=== PATIENT | male | born 1945 | race Caucasian/White ===

== ENCOUNTER 2020-08-07 19:11 | Inpatient (IN) | payer OTHER ==
[~2020-08-07] VITALS: Ht 177.8 cm; Wt 74.8 kg
--- NOTE | 2020-08-07 19:44 | NUR ---
[facility] - Vaishali Kurtz [phone]
[2020-08-07 20:44] LABS: BASOPHILS % (AUTO) 0.6 % (0.0-2.0); EOSINOPHILS % (AUTO) 1.7 % (0.0-6.0); HEMATOCRIT 40 % (39-51); HEMOGLOBIN 13.2 g/dL (13.5-17.5); LYMPHOCYTES # (AUTO) 0.6 /CMM (0.8-4.8); LYMPHOCYTES % (AUTO) 8.6 % (20.0-44.0); MEAN CORPUSCULAR HGB CONC 33 g/dl (31.0-36.0); MEAN CORPUSCULAR VOLUME 91 fL (80-96); MONOCYTES # (AUTO) 0.5 /CMM (0.1-1.30); MONOCYTES % (AUTO) 6.9 % (2.0-12.0); NEUTROPHILS # (AUTO) 5.4 /CMM (1.8-8.9); NEUTROPHILS % (AUTO) 82.2 % (43.0-81.0); PLATELET COUNT (AUTO) 90 /CMM (150-450); RED BLOOD CELL COUNT(AUTO) 4.46 MIL/uL (4.5-6.0); WHITE BLOOD COUNT (AUTO) 6.5 K/uL (4.3-11.0)
[2020-08-07 20:57] LABS: CALCIUM, SERUM 8.3 mg/dL (8.5-10.1); CARBON DIOXIDE 26 mmol/L (21-32); CHLORIDE 110 mmol/L (98-107); CREATININE 1.4 mg/dL (0.6-1.3); GLUCOSE 136 mg/dL (74-106); POTASSIUM 4.1 mmol/L (3.5-5.1); SODIUM SERUM 146 mmol/L (136-145); UREA NITROGEN, BLOOD 35 mg/dL (7-18)
--- NOTE | 2020-08-07 21:18 | NUR ---
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 RA GAVE NITRO 2 SPRAY AND 324MG ASA. pt aox 1 (baseline per ra) RR EVEN AND UNLABORED. NO SOB NOTED. NO NVD AT THIS TIME. PT GOWNED AND PLACED ON MONITOR. PT EVALUATED BY DR. MCINTYRE.
--- NOTE | 2020-08-07 21:25 | NUR ---
COVID SWAB SENT TO LAB
--- NOTE | 2020-08-07 21:42 | NUR ---
RAGINI SCOTT TALKING TO DR. SMILEY FROM [facility] FOR PEER TO PEER REPORT.
[2020-08-07 22:39] LABS: BAND % (MANUAL) 3 % (0.0-5.0); LYMPHOCYTES % (MANUAL) 10 % (16-48); MONOCYTES % (MANUAL) 5 % (0-11.0); NEUTROPHILS % (MANUAL) 82 (42-76)
--- NOTE | 2020-08-07 23:34 | NUR ---
PT CHELI . CALL ANYTIME FOR UPDATES PER PT .
--- NOTE | 2020-08-08 00:28 | NUR ---
DR. OLIVIER PAGED PER ER ORDER.
[2020-08-08] MEDS ORDERED: ASPIRIN EC 81 MG TABLET.DR PO ONE (00:48)
[2020-08-08] MEDS ORDERED: NITROGLYCERIN 0.4 MG/TAB BOTTLE SL PRN (01:00)
[2020-08-08] MEDS ORDERED: ACETAMINOPHEN 325 MG TABLET PO PRN (01:00)
[2020-08-08] MEDS ORDERED: ZOLPIDEM TARTRATE 5 MG TABLET PO PRN (01:00)
[2020-08-08] MEDS ORDERED: Z GUARD REMEDY 2 OZ OINT TP PRN (01:00)
[2020-08-08] MEDS ORDERED: ONDANSETRON HCL/PF 4 MG/2 ML VIAL IVP PRN (01:00)
[2020-08-08] MEDS ORDERED: HYDROCODONE/APAP 5/325MG TABLET PO PRN (01:00)
[2020-08-08] MEDS ORDERED: MAG HYDROX/AL HYDROX/SIMETH 30 ML UDC PO PRN (01:00)
[2020-08-08] MEDS ORDERED: MAGNESIUM HYDROXIDE 30 ML UDC PO PRN (01:00)
[2020-08-08] MEDS ORDERED: MORPHINE SULFATE INJ 2 MG/ML DISP.SYRIN IV PRN (01:00)
[2020-08-08] MEDS ORDERED: ENOXAPARIN SODIUM 60 MG/0.6 ML DISP.SYRIN SQ ONE (01:29)
[2020-08-08] MEDS ORDERED: ASPIRIN 81 MG TAB.CHEW ONE (01:30)
[2020-08-08] MEDS: ENOXAPARIN SODIUM 40 MG/0.4 ML DISP.SYRIN SQ SCH (01:37)
--- NOTE | 2020-08-08 02:31 | NUR ---
pt cleaned and turned and repositioned. pt connected to monitor. pt appears comfortable no acute distress noted.
--- NOTE | 2020-08-08 05:52 | NUR ---
PT ASLEEP, NO ACUTE DISTRESS NOTED, RESP EVEN AND UNLABORED. PT REMAINS ON CARDIAC MONITORING, CONTINUOUS POX. CALL LIGHT WITHIN REACH. WILL CONTINUE TO MONITOR PT CLOSELY.
--- NOTE | 2020-08-08 07:19 | NUR ---
report given to CURTIS John. no acute distress noted.
[2020-08-08] MEDS: PANTOPRAZOLE 40 MG TABLET.DR PO SCH (07:30)
[2020-08-08] MEDS ORDERED: ISOS30TA6 PO (08:31)
[2020-08-08] MEDS ORDERED: ATOR40TA PO (08:31)
[2020-08-08] MEDS ORDERED: DONE10TA44 PO (08:31)
[2020-08-08] MEDS ORDERED: ASPI-1169 PO (08:31)
[2020-08-08] MEDS ORDERED: CARB1TAB21 PO (08:31)
[2020-08-08] MEDS ORDERED: METO25TA20 PO (08:31)
[2020-08-08] MEDS ORDERED: PANTOPRAZOLE 40 MG TABLET.DR PO ONE (09:15)
[2020-08-08] MEDS: ASPIRIN EC 81 MG TABLET.DR PO SCH (09:29)
--- NOTE | 2020-08-08 09:30 | NUR ---
[place]. No complaints at this time For admission - awaiting bed at this time. Assisted w/Breakfast served ate 25%.
--- NOTE | 2020-08-08 10:27 | NUR ---
312-1. JESSICA IS THE NURSE.
--- NOTE | 2020-08-08 10:49 | NUR ---
Pt for admit to room 312. Nurse [employer] w/RN Brianna. NO acute changes, No obvious distress
--- NOTE | 2020-08-08 11:15 | NUR ---
PT. BROUGHT UP TO FLOOR,CONFUSED,RN NOTED BRUISES UPPER AND LOWER EXT.AND REDNESS 0N BUTTOCKS HEELS WELL. REFUSING PHOTOS.HOOKED UP TO TELE.SR RATE OF 82. SIDE RAILS UP.CALL GIBBONS WITHIN REACH.
[2020-08-08 12:00] VITALS: BP 149/78
--- NOTE | 2020-08-08 14:30 | NUR ---
pt. removed hep lock to rt. hand. restart of angio lt. ac #22.sleeve.additionally a removed tele box.
[2020-08-08 16:00] VITALS: BP 128/78
[2020-08-08] MEDS: METOPROLOL TARTRATE 25 MG TABLET PO SCH (16:18)
[2020-08-08] MEDS: CARBIDOPA/LEVODOPA 25/100 MG 1 UDTAB PO SCH (16:18)
--- NOTE | 2020-08-08 16:51 | NUR ---
rn noted bu rn noted bulge on upper rt. chest.confirmed with .it is a port for chemo.
--- NOTE | 2020-08-08 18:03 | NUR ---
taking oral meds crushed.
[2020-08-08] MEDS: DONEPEZIL 5 MG TABLET PO SCH (19:04)
--- NOTE | 2020-08-08 20:27 | NUR ---
RN OPENING NOTES PATIENT REFUSED IN BED, CONFUSED AND UNCOOPERATIVE. STABLE ON RA WITH BREATHING EVEN AND UNLABORED, NO SOB NOTED. NO SIGNS OF ACUTE DISTRESS. NO SIGNS OF PAIN OR DISCOMFORT. REMOVING TELE MONITORS. IV LOCATED ON L AC #22 SL. RUC PORT NOTED AND IN PLACE. SAFETY PRECAUTIONS IN PLACE WITH BED ALARM ON, BED IN LOWEST POSITION, CALL LIGHT WITHIN REACH, BREAKS ON, SIDE RAILS UP.
[2020-08-08] MEDS: ATORVASTATIN 40 MG TABLET PO SCH (21:37)
--- NOTE | 2020-08-08 21:37 | NUR ---
PT REFUSED SCHEDULED ATORVASTATIN, SPIT IT OUT AND BEING UNCOOPERATIVE.
[2020-08-08 22:00] VITALS: BP 164/88
--- NOTE | 2020-08-08 23:40 | NUR ---
UPDATED ON PATIENT PROGRESS.
[2020-08-09] VITALS: BP 151/84
[2020-08-09] MEDS: ENOXAPARIN SODIUM 40 MG/0.4 ML DISP.SYRIN SQ SCH (01:02)
[2020-08-09 04:00] VITALS: BP 141/73
--- NOTE | 2020-08-09 07:30 | NUR ---
ms rn received on bed, awake,alert,oriented x1,not in any form of distress, respirations even and unlabored,no sob noted, lungs are diminished,abdomen soft,positive bowel sounds,denies pain at this time,all needs attended.
[2020-08-09 08:00] VITALS: BP 143/80
[2020-08-09 08:01] VITALS: BP 144/77
--- NOTE | 2020-08-09 08:14 | NUR ---
RN CLOSING NOTES PATIENT IN BED, CONFUSED A/O X 1. STABLE ON RA WITH BREATHING EVEN AND UNLABORED, NO SOB NOTED. NO SIGNS OF ACUTE DISTRESS. NO SIGNS OF PAIN OR DISCOMFORT. IV LOCATED ON L AC #22 SL. RUC PORT NOTED AND IN PLACE. SAFETY PRECAUTIONS IN PLACE WITH BED ALARM ON, BED IN LOWEST POSITION, CALL LIGHT WITHIN REACH, BREAKS ON, SIDE RAILS UP. ALL NEEDS ATTENDED TO. PATIENT KEPT CLEAN AND DRY. WILL ENDORSE TO ONCOMING SHIFT ABOUT KELSEY.
[2020-08-09 08:38] LABS: BASOPHILS % (AUTO) 0.8 % (0.0-2.0); EOSINOPHILS % (AUTO) 2.9 % (0.0-6.0); HEMATOCRIT 36 % (39-51); HEMOGLOBIN 12.5 g/dL (13.5-17.5); LYMPHOCYTES # (AUTO) 0.7 /CMM (0.8-4.8); MEAN CORPUSCULAR HGB CONC 35 g/dl (31.0-36.0); MEAN CORPUSCULAR VOLUME 87 fL (80-96); MONOCYTES # (AUTO) 0.4 /CMM (0.1-1.30); NEUTROPHILS # (AUTO) 4.3 /CMM (1.8-8.9); NEUTROPHILS % (AUTO) 77.3 % (43.0-81.0); PLATELET COUNT (AUTO) 86 /CMM (150-450); RED BLOOD CELL COUNT(AUTO) 4.14 MIL/uL (4.5-6.0); WHITE BLOOD COUNT (AUTO) 5.6 K/uL (4.3-11.0)
[2020-08-09 08:40] LABS: THYROID STIMULATING HORMONE 0.946 uIU/mL (0.358-3.74)
[2020-08-09 08:41] LABS: ALBUMIN 2.5 g/dL (3.4-5.0); BILIRUBIN,TOTAL 2.2 mg/dL (0.2-1.0); CALCIUM, SERUM 8.1 mg/dL (8.5-10.1); MAGNESIUM 1.8 mg/dL (1.8-2.4); PHOSPHORUS 3.4 mg/dL (2.5-4.9); POTASSIUM 3.3 mmol/L (3.5-5.1); TOTAL PROTEIN, SERUM 5.2 g/dL (6.4-8.2)
[2020-08-09] MEDS: ASPIRIN EC 81 MG TABLET.DR PO SCH (08:50)
[2020-08-09] MEDS: ISOSORBIDE MONONITRATE (30MG) 30 MG TAB.SR.24H PO SCH (08:51)
[2020-08-09] MEDS: METOPROLOL TARTRATE 25 MG TABLET PO SCH ×2 (08:51→17:38)
[2020-08-09] MEDS: CARBIDOPA/LEVODOPA 25/100 MG 1 UDTAB PO SCH ×3 (08:51→17:41)
[2020-08-09] MEDS: PANTOPRAZOLE 40 MG TABLET.DR PO SCH (08:54)
[2020-08-09] MEDS ORDERED: ASPIRIN 81 MG TAB.CHEW PO SCH (09:00)
--- NOTE | 2020-08-09 09:50 | NUR ---
ms [place] breakfast served,due meds given.tolerated well.
[2020-08-09 10:23] LABS: EOSINOPHILS % (MANUAL) 2 % (0-4); LYMPHOCYTES % (MANUAL) 19 % (16-48); MONOCYTES % (MANUAL) 6 % (0-11.0); MYELOCYTES % 3 % (0-0); NEUTROPHILS % (MANUAL) 70 (42-76)
[2020-08-09] MEDS: POTASSIUM CHLORIDE 20 MEQ TAB.PRT.SR PO SCH ×2 (11:27→12:13)
[2020-08-09 16:00] VITALS: BP 122/76
--- NOTE | 2020-08-09 16:00 | NUR ---
ms dina d/c cancelled,will monitor patient.
[2020-08-09] MEDS: DONEPEZIL 5 MG TABLET PO SCH (17:41)
--- NOTE | 2020-08-09 19:03 | NUR ---
ms rn on bed,all needs attended.
[2020-08-09] MEDS: ATORVASTATIN 40 MG TABLET PO SCH (22:01)
[2020-08-10] MEDS: ENOXAPARIN SODIUM 40 MG/0.4 ML DISP.SYRIN SQ SCH (01:19)
--- NOTE | 2020-08-10 07:15 | NUR ---
RN CLOSING NOTES Pt asleep on bed. No IV line present, MD aware - ok no to reinsert. Pt is for possible DC home today. awaiting for a call from . All nursing needs attended, due meds given as ordered. Will endorse to the next shift.
[2020-08-10 08:00] VITALS: BP 145/81
[2020-08-10 08:12] LABS: PTH, INTACT 24 pg/mL (15-65)
[2020-08-10] MEDS: PANTOPRAZOLE 40 MG TABLET.DR PO SCH (09:04)
[2020-08-10] MEDS: ASPIRIN EC 81 MG TABLET.DR PO SCH (09:04)
[2020-08-10] MEDS: CARBIDOPA/LEVODOPA 25/100 MG 1 UDTAB PO SCH ×3 (09:05→16:36)
[2020-08-10] MEDS: METOPROLOL TARTRATE 25 MG TABLET PO SCH ×2 (09:05→16:37)
[2020-08-10] MEDS: ISOSORBIDE MONONITRATE (30MG) 30 MG TAB.SR.24H PO SCH (09:05)
[2020-08-10 17:23] LABS: *SPE A/G RATIO 1.2 (0.7-1.7); *SPE ALBUMIN 2.6 g/dL (2.9-4.4); *SPE ALPHA-1-GLOBULIN 0.1 g/dL (0.0-0.4); *SPE ALPHA-2-GLOBULIN 0.7 g/dL (0.4-1.0); *SPE BETA GLOBULIN 0.7 g/dL (0.7-1.3); *SPE GLOBULIN, TOTAL 2.2 g/dL (2.2-3.9); *SPE M-SPIKE Not Observed g/dL (Not Observed); *SPEGAMMA GLOBULIN 0.6 g/dL (0.4-1.8)
[2020-08-10] MEDS: DONEPEZIL 5 MG TABLET PO SCH (17:36)
--- NOTE | 2020-08-10 19:12 | NUR ---
[employer]PER[employer]OR [employer] CLOSING NOTES PATIENT DISCHARGED AND AWAITING TO BE PICKED UP BY THE AMBULANCE. OTHERWISE MEDICALLY STABLE, ON ROOM AIR AND SAFETY PRECAUTIONS IN PLACE.
--- NOTE | 2020-08-10 19:12 | NUR ---
APPELLATE COURT JUDGE OPENING NOTES RECEIVED PATIENT IN BED, ASLEEP. PATIENT ON ROOM AIR; BREATHING EVEN AND UNLABORED. NO S/S OF PAIN. NO IV LINE PRESENT AND MD AWARE. SAFETY PRECAUTIONS IN PLACE; BED IN LOW POSITION AND LOCKED, RAILS UP X2, CALL LIGHT WITHIN REACH. WILL CONTINUE TO MONITOR PATIENT.
[2020-08-10 20:00] VITALS: BP 147/83
--- NOTE | 2020-08-10 21:07 | NUR ---
TELE/RN MADE A F/U CALL TO [facility] [phone], AMBULANCE IS ON ITS WAY.
--- NOTE | 2020-08-10 21:08 | NUR ---
TELE/RN ON INITIAL SHIFT ROUNDING, PATIENT WAS AWAKE, ALERT, ORIENTED TO NAME ONLY, NO C/O PAIN, NO DISTRESS NOTED, WAITING FOR THE AMBULANCE FOR CLINICAL ORTHOPTIST TO HOME. WILL MONITOR.
--- NOTE | 2020-08-10 22:07 | NUR ---
TELE/RN PATIENT LEFT THE FLOOR IN STABLE CONDITION.
== END 2020-08-10 21:50 | disposition home health service (06) | DRG 205 ==
LOC: ER 19:18 → TRANSITION 08-08 00:28 → TELE 08-08 10:41
PROVIDERS: ADMIT Student in an Organized Health Care Education/Training Program; ATTEND Student in an Organized Health Care Education/Training Program
DX: M94.0 Chondrocostal junction syndrome [Tietze] (principal); N17.0 Acute kidney failure with tubular necrosis; I21.A1 Myocardial infarction type 2; E87.1 Hypo-osmolality and hyponatremia; E87.0 Hyperosmolality and hypernatremia; G20 Parkinson's disease; F02.80 Dementia in other diseases classified elsewhere, unspecified severity, without behavioral disturbance, psychotic disturbance, mood disturbance, and anxiety; D64.9 Anemia, unspecified; D69.6 Thrombocytopenia, unspecified; Z85.118 Personal history of other malignant neoplasm of bronchus and lung; Z95.1 Presence of aortocoronary bypass graft; I12.9 Hypertensive chronic kidney disease with stage 1 through stage 4 chronic kidney disease, or unspecified chronic kidney disease; E86.1 Hypovolemia; N18.9 Chronic kidney disease, unspecified; E87.6 Hypokalemia; M89.9 Disorder of bone, unspecified; I25.10 Atherosclerotic heart disease of native coronary artery without angina pectoris; N28.1 Cyst of kidney, acquired; Z20.828 Contact with and (suspected) exposure to other viral communicable diseases; Z79.82 Long term (current) use of aspirin
CPT/HCPCS: 36415; 71045-TC; 76770-TC; 80048-TC; 80053-TC; 80061-TC; 82550-TC; 83735-TC; 83880; 83970; 84100-TC; 84155; 84165; 84443-TC; 84484-TC; 85025-TC; 87081-TC; 93307-TC; A4217; C9803; G0378; J1650; J2405